=== PATIENT | male | born 1965 | race Caucasian/White ===

== ENCOUNTER 2017-05-09 02:45 | Emergency (ER) | payer OTHER ==
[~2017-05-09] VITALS: Ht 182.9 cm; Wt 95.5 kg
[~2017-05-09 02:45] MED LIST: ALBU8.5H2 INHALATION; BECL8.7A6 IH; HYDR50CA PO; LITH300T PO; OMEP20CA11 PO; QUET200T PO
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
[2017-05-09 03:04] VITALS: BP 153/96; PULSE 118; RESP 18; O2SAT 100
[2017-05-09 03:26] LABS: BASOPHILS % (AUTO) 0.2 % (0-3); EOSINOPHILS % (AUTO) 0.5 % (0-5); MONOCYTES % (AUTO) 8.4 % (4-12); Mean Corpuscular Hemoglobin 30.4 pg (27.0-35.0); NEUTROPHILS % (AUTO) 76.4 % (40-74); Platelet Count 290 bil/L (150-400)
[2017-05-09] MEDS ORDERED: Magnesium Chloride SR 64 mg ER24 Tablet PO ONE (03:55)
[2017-05-09] MEDS ORDERED: LORazepam 2 mg Tablet PO ONE (05:45)
[2017-05-09 09:20] VITALS: BP 112/76; PULSE 83; RESP 18; O2SAT 97
[2017-05-09 12:26] VITALS: BP 130/90; PULSE 97; RESP 16; O2SAT 96
[2017-05-09] MEDS ORDERED: LORazepam 1 mg Tablet PO ONE (12:30)
[2017-05-09 12:36] VITALS: BP 130/90; PULSE 97; RESP 16; O2SAT 96
== END 2017-05-09 12:36 | disposition home or self-care (01) ==
LOC: SED 02:45
DX: F31.9 Bipolar disorder, unspecified (principal); F30.9 Manic episode, unspecified; F12.10 Cannabis abuse, uncomplicated; F15.10 Other stimulant abuse, uncomplicated; Z88.0 Allergy status to penicillin